=== PATIENT | female | born 1960 | race Two or more races ===

== ENCOUNTER → 2025-02-17 | Outpatient (CLI) | payer MEDICAID, SELFPAY ==
--- NOTE | 2025-02-17 15:05 | XR_ITS ---
Examination: Knee, left, 3 views Technique: Knee AP, lateral, oblique 3 views standing Date and time of exam: February 17, 2025, 1538 hours INDICATIONS: Left knee pain 15 years. FINDINGS: Severe osteopenia Moderate to advanced tricompartment osteoarthritis No fractures Small knee effusion IMPRESSION: Severe osteopenia Moderate to advanced tricompartment osteoarthritis
== END | disposition home or self-care (01) ==
PROVIDERS: PCP Physician Assistant; Referring Provider Orthopaedic Surgery; Visit Provider Orthopaedic Surgery
DX: M17.12 Unilateral primary osteoarthritis, left knee (principal); M85.88 Other specified disorders of bone density and structure, other site
CPT/HCPCS: 73562